=== PATIENT | male | born 1965 | race Caucasian/White ===

== ENCOUNTER 2019-10-02 15:34 | Emergency (ER) | payer OTHER, SELFPAY ==
[2019-10-02 15:50] VITALS: BP 148/87; PULSE 95; RESP 16; TEMP 37.4; O2SAT 99
--- NOTE | 2019-10-02 15:53 | ED.WOUNDLAC ---
HPI - Wound/Laceration General Chief Complaint: Wound/Laceration Stated Complaint: cut on left leg Time Seen by Provider: 10/02/19 15:53 Source: patient and RN notes reviewed History of Present Illness HPI narrative: Patient is a 54-year-old male who presents the urgent care with complaints of a laceration to the left leg. Patient states that it happened earlier this morning when he was moving a fan from his father's attic. Patient states that the fan was primarily plastic but he is also not up-to-date on tetanus. Patient states that he has not cleaned the wound or placed a bandage over it. No other acute complaints. No acute distress noted. Patient read the plan of care. Related Data Home Medications Medication Instructions Recorded Confirmed fenofibrate 10/02/19 Allergies Allergy/AdvReac Type Severity Reaction Status Date / Time No Known Allergies Allergy Verified 10/02/19 15:53 Review of Systems Review of Systems: Narrative: CONSTITUTIONAL: Denies fever, chills, or sweats. EYES: Denies visual changes, redness, or discharge. ENT: Denies rhinorrhea, congestion, sore throat, or otalgia. CARDIOVASCULAR: Denies chest pain, palpitations, or edema. RESPIRATORY: Denies cough or dyspnea. GASTROINTESTINAL: Denies abdominal pain, nausea, vomiting, or diarrhea. GENITOURINARY: Denies dysuria or hematuria. SKIN: Reports of a laceration to the left leg MUSCULOSKELETAL: Denies back pain, joint pain, or myalgia. NEUROLOGIC: Denies headache, numbness, or weakness. All other systems reviewed are negative, except as documented in HPI. PMFSH Comments At the time of my signature, I reviewed and agree with the nursing past medical, surgical, social, and family history. There is no relevant family history pertinent to the patient complaint. Exam Narrative: Exam Narrative: GENERAL: This is a well-nourished, well-developed patient, in no apparent distress. HEAD: normocephalic, atraumatic. EYES: PERRL. Sclera clear/white. Vision is grossly intact. EARS: External ears normal NOSE: External nose normal with no obvious nasal discharge, nares without redness, no rhinorrhea. THROAT: Mucous membranes moist NECK: Neck supple SKIN: 2 cm linear laceration to the left lower leg NEURO: awake, alert, and oriented to person, place and time. There were no obvious focal neurologic abnormalities. EXTREMITIES: No clubbing, cyanosis, or edema. Course Vital Signs Vital signs: Vital Signs Temperature 99.3 F 10/02/19 15:50 Pulse Rate 95 10/02/19 15:50 Respiratory Rate 16 10/02/19 15:50 Blood Pressure 148/87 H 10/02/19 15:50 Pulse Oximetry 99 10/02/19 15:50 Temperature 99.3 F 10/02/19 15:50 Pulse Rate 95 10/02/19 15:50 Respiratory Rate 16 10/02/19 15:50 Blood Pressure 148/87 H 10/02/19 15:50 Pulse Oximetry 99 10/02/19 15:50 Reviewed?patient is informed that they may have pre-hypertension or hypertension based on a blood pressure reading in the department. I recommend the patient call the primary care provider listed on their discharge instructions or a physician of their choice this week to arrange follow-up for further evaluation of possible pre-hypertension or hypertension. Procedures Laceration Laceration 1: Site: lower extremity Side (If applicable): left Size (cm): 2 Description: linear Pre-repair: irrigated ====== Skin Level ====== Skin layer closed with: dermabond and steri strips ====== Subcutaneous Layer ====== ====== Muscle Layer ====== ====== Tendon Layer ====== Dressin cm linear laceration to the left lower leg approximated with Dermabond and 4 Steri-Strips. Wound irrigated and cleansed with [employer] normal saline prior to procedure. Patient tolerated well. Procedure successful. MDM - Wound/Laceration MDM Narrative Medical decision making narrative: Advised the patient not to scrub directly over the laceration. Be aware
--- NOTE | 2019-10-02 16:24 | PC.NURSE ---
Boostrix given IM in left deltoid at 1610. Unable to scan med initially as provider entered adacel in orders, adacel was not available. Needed to contact pharmacy to cancel order and replace adacel with boostrix. This was unable to be done in a timely fashion, so med administered without scanning.
[2019-10-02] MEDS: TETANUS,DIPHTHERIA,AC PERTUSSIS ADULT (0.5 ML) BOOSTRIX IM (16:29)
== END 2019-10-02 16:38 | disposition home or self-care (01) ==
PROVIDERS: Emergency Provider Nurse Practitioner Family
DX: S81.812A Laceration without foreign body, left lower leg, initial encounter (principal); Z23 Encounter for immunization; W26.8XXA Contact with other sharp object(s), not elsewhere classified, initial encounter
CPT/HCPCS: 12001; 90471; 90715; 99202; G0463